=== PATIENT | female | born 1995 | race Caucasian/White ===

== ENCOUNTER 2017-09-19 17:29 | Emergency (ER) | payer OTHER, BC ==
[~2017-09-19] VITALS: Ht 152.4 cm; Wt 49.9 kg
[2017-09-19] MEDS ORDERED: PREDNISONE 20 M20 MG PO (18:50)
[2017-09-19 19:41] VITALS: BP 116/68
== END 2017-09-19 19:42 | disposition home or self-care (01) ==
LOC: ER 17:29
DX: T78.2XXA Anaphylactic shock, unspecified, initial encounter (principal)